=== PATIENT | female | born 1960 | race Caucasian/White ===

== ENCOUNTER → 2020-09-22 | Outpatient (CLI) | payer MEDICARE, OTHER ==
[~2020-09-22] MED LIST: NORCO 5-325 TA1 EACH PO
== END ==
LOC: HEART 5 10:48
DX: R06.02 Shortness of breath (principal); R94.2 Abnormal results of pulmonary function studies; Z87.891 Personal history of nicotine dependence
CPT/HCPCS: 94010

== ENCOUNTER → 2020-11-29 | Outpatient (CLI) | payer MEDICARE, OTHER | LOC: EXRD 13:00 | DX: Z78.0 Asymptomatic menopausal state (principal) | CPT/HCPCS: 77080 ==

== ENCOUNTER → 2021-07-06 | Outpatient (CLI) | payer MEDICARE ==
[2021-07-06 13:14] LABS: HEMOGLOBIN 14.7 gm/dl (12.3-15.3); RED BLOOD COUNT 5.02 M/UL (4.00-5.10); WHITE BLOOD COUNT 9.8 K/UL (4.5-11.0)
[2021-07-06 13:34] LABS: BUN/CREATININE RATIO 20 (0-10)
== END ==
LOC: RAD 11:52
PROVIDERS: Nurse Practitioner Primary Care
DX: Z03.818 Encounter for observation for suspected exposure to other biological agents ruled out (principal); E04.2 Nontoxic multinodular goiter; E10.43 Type 1 diabetes mellitus with diabetic autonomic (poly)neuropathy; R07.81 Pleurodynia; M51.36 Other intervertebral disc degeneration, lumbar region; K59.00 Constipation, unspecified; E55.9 Vitamin D deficiency, unspecified; Z79.899 Other long term (current) drug therapy
CPT/HCPCS: 36415; 71101; 80053; 80061; 83036; 84443; 85025